=== PATIENT | male | born 1985 | race Caucasian/White ===

== ENCOUNTER 2016-11-04 17:30 | Emergency (ER) | payer MEDICAID ==
[~2016-11-04] VITALS: Ht 162.6 cm; Wt 77.3 kg
[2016-11-04 17:59] LABS: BASO % 0.3 % (0.0-2.0); EOS # 0.1 (0.0-0.7); EOS % 0.8 % (0-4.0); GRAN # 4.5 (1.4-6.5); HEMATOCRIT 43.2 % (42.0-52.0); HEMOGLOBIN 13.9 g/dl (13.5-18.0); LYMPH # 2.3 (1.2-3.4); LYMPH % 30.2 % (20.0-51.0); MEAN CELL VOLUME 81 fl (80.0-100.0); MEAN CORPUSCULAR HEMOGLOBIN 26 pg (27.0-31.0); MEAN CORPUSCULAR HGB CONC 32 g/dl (33.0-37.0); MEAN PLATELET VOLUME 12.3 fl (7.4-10.4); MONO # 0.6 (0.1-0.6); MONO % 8.4 % (1.7-9.3); PLATELET COUNT 122 K/mm3 (130-400); RED BLOOD COUNT 5.31 M/mm3 (4.20-5.60); REDCELL DISTRIBUTION WIDTH-CV 15.9 % (11.5-14.5); WHITE BLOOD COUNT 7.5 K/mm3 (4.8-10.8)
[2016-11-04 18:15] LABS: ADJUSTED CALCIUM 9.6 mg/dL (8.4-10.2); ALANINE AMINOTRANSFERASE 71 U/L (21-72); ALBUMIN 4.3 gm/dL (3.5-5.0); ALKALINE PHOSPHATASE 89 U/L (50-136); ANION GAP 13 mmol/L (7-16); BILIRUBIN,TOTAL 0.7 mg/dL (0.0-1.0); BLOOD UREA NITROGEN 18 mg/dL (9-20); CALCIUM 9.8 mg/dL (8.4-10.2); CARBON DIOXIDE 26 mmol/L (22-30); CHLORIDE 104 mmol/L (98-107); CREATININE, serum 1.42 mg/dL (0.66-1.25); GLUCOSE 78 mg/dL (74-106); SODIUM 143 mmol/L (137-145); TOTAL PROTEIN 7.7 gm/dL (6.4-8.2)
[2016-11-04 18:32] LABS: PROLACTIN 15.4 ng/mL (3.7-17.9)
[2016-11-04] MEDS ORDERED: LYRICA300 MG PO (19:29)
[2016-11-04] MEDS ORDERED: ATARAX50 MG PO (19:29)
[2016-11-04] MEDS ORDERED: TENORMIN 5050 MG/TAB PO (19:30)
[2016-11-04] MEDS ORDERED: ZOLOFT 100MG100 MG PO (19:31)
[2016-11-04] MEDS ORDERED: TENORMIN 2525 MG/TAB PO (19:31)
[2016-11-04] MEDS ORDERED: AMITRIPTYLINE H50 M1 PO (19:32)
[2016-11-04] MEDS ORDERED: XALATAN EYE DROPS OU (19:33)
[2016-11-04] MEDS ORDERED: VIMPAT100 MG PO (19:34)
[2016-11-04 19:35] VITALS: BP 92/72; PULSE 77; TEMP 97.8
[2016-11-04] MEDS ORDERED: VITAMIN D31000 IU PO (19:35)
[2016-11-04] MEDS ORDERED: TOPAMAX 100MG100 M1 PO (19:36)
[2016-11-04] MEDS ORDERED: PEPCID 20MG TAB20 MG PO (19:37)
[2016-11-04] MEDS ORDERED: FISH OIL 1000MG1 CAP PO (19:38)
[2016-11-04] MEDS ORDERED: ANTI-FUNGAL1% TOP (19:39)
[2016-11-04] MEDS ORDERED: IBU400 MG PO (19:40)
[2016-11-04] MEDS ORDERED: MAXALT10 MG PO (19:40)
[2016-11-04] MEDS ORDERED: FIORICET 325 MG1 TA1 PO (19:41)
== END 2016-11-04 19:50 | disposition home or self-care (01) ==
LOC: COL.ER 17:30
PROVIDERS: Physician Assistant
DX: S00.83XA Contusion of other part of head, initial encounter (principal); S10.83XA Contusion of other specified part of neck, initial encounter; S09.8XXA Other specified injuries of head, initial encounter; W18.39XA Other fall on same level, initial encounter
CPT/HCPCS: J3360; J7030

== ENCOUNTER 2016-11-24 10:56 | Emergency (ER) | payer MEDICAID ==
[~2016-11-24] VITALS: Ht 162.6 cm; Wt 80.0 kg
[~2016-11-24 10:56] MED LIST: AMITRIPTYLINE H50 M1 PO; ANTI-FUNGAL1% TOP; ATARAX50 MG PO; FIORICET 325 MG1 TA1 PO; FISH OIL 1000MG1 CAP PO; IBU400 MG PO; LYRICA300 MG PO; MAXALT10 MG PO; PEPCID 20MG TAB20 MG PO; TENORMIN 2525 MG/TAB PO; TENORMIN 5050 MG/TAB PO; TOPAMAX 100MG100 M1 PO; VIMPAT100 MG PO; VITAMIN D31000 IU PO; XALATAN EYE DROPS OU; ZOLOFT 100MG100 MG PO
[2016-11-24 11:24] LABS: BASO % 0.4 % (0.0-2.0); EOS # 0.1 (0.0-0.7); EOS % 0.7 % (0-4.0); GRAN # 4.7 (1.4-6.5); GRAN % 62.5 % (42.2-75.2); MEAN CELL VOLUME 81 fl (80.0-100.0); MEAN CORPUSCULAR HEMOGLOBIN 26 pg (27.0-31.0); MEAN CORPUSCULAR HGB CONC 32 g/dl (33.0-37.0); MEAN PLATELET VOLUME 12.7 fl (7.4-10.4); MONO # 0.7 (0.1-0.6); MONO % 9.1 % (1.7-9.3); PLATELET COUNT 137 K/mm3 (130-400); RED BLOOD COUNT 5.79 M/mm3 (4.20-5.60); REDCELL DISTRIBUTION WIDTH-CV 15.5 % (11.5-14.5); WHITE BLOOD COUNT 7.5 K/mm3 (4.8-10.8)
[2016-11-24 11:38] LABS: INFLUENZA B NEGATIVE
[2016-11-24 11:58] LABS: ADJUSTED CALCIUM 9.5 mg/dL (8.4-10.2); ALBUMIN 4.4 gm/dL (3.5-5.0); BILIRUBIN,TOTAL 0.7 mg/dL (0.0-1.0); C-REACTIVE PROTEIN 0.5 mg/dL (0.0-0.9); CALCIUM 9.8 mg/dL (8.4-10.2); CREATININE, serum 1.24 mg/dL (0.66-1.25); POTASSIUM 3.8 mmol/L (3.4-5.0); TOTAL PROTEIN 8.4 gm/dL (6.4-8.2)
[2016-11-24] MEDS ORDERED: PHENERGAN 25 TA25 MG PO (15:06)
[2016-11-24] MEDS ORDERED: ZOFRAN ODT4 MG PO (15:06)
[2016-11-24] MEDS ORDERED: NORCO 325 MG-51 TAB PO (15:07)
[2016-11-24 15:56] VITALS: BP 120/82; PULSE 74; TEMP 98.2
== END 2016-11-24 15:58 | disposition home or self-care (01) ==
LOC: COL.ER 10:56
PROVIDERS: Emergency Medicine
DX: R51 Headache (principal); R11.10 Vomiting, unspecified; Z98.2 Presence of cerebrospinal fluid drainage device; G80.9 Cerebral palsy, unspecified; G40.909 Epilepsy, unspecified, not intractable, without status epilepticus
CPT/HCPCS: J1885; J2270; J2405; J2550; J7030

== ENCOUNTER 2018-01-01 13:10 | Emergency (ER) | payer MEDICAID ==
[~2018-01-01] VITALS: Ht 162.6 cm; Wt 75.0 kg
[~2018-01-01 13:10] MED LIST changes: +NORCO 325 MG-51 TAB PO; +PHENERGAN 25 TA25 MG PO; +ZOFRAN ODT4 MG PO
[2018-01-01 13:15] VITALS: TEMP 97.8
[2018-01-01 16:02] LABS: BASO % 0.4 % (0.0-2.0); EOS # 0.1 (0.0-0.7); EOS % 1.5 % (0-4.0); GRAN # 3.9 (1.4-6.5); GRAN % 58.3 % (42.2-75.2); HEMATOCRIT 44.8 % (42.0-52.0); HEMOGLOBIN 14.3 g/dl (13.5-18.0); LYMPH % 29.6 % (20.0-51.0); MEAN CELL VOLUME 83 fl (80.0-100.0); MEAN CORPUSCULAR HEMOGLOBIN 27 pg (27.0-31.0); MEAN CORPUSCULAR HGB CONC 32 g/dl (33.0-37.0); MEAN PLATELET VOLUME 12.8 fl (7.4-10.4); MONO # 0.7 (0.1-0.6); MONO % 9.9 % (1.7-9.3); PLATELET COUNT 105 K/mm3 (130-400); RED BLOOD COUNT 5.38 M/mm3 (4.20-5.60); REDCELL DISTRIBUTION WIDTH-CV 16.6 % (11.5-14.5)
[2018-01-01 16:14] LABS: BILIRUBIN,TOTAL 0.2 mg/dL (0.0-1.0); CALCIUM 9.5 mg/dL (8.4-10.2); CREATININE, serum 1.12 mg/dL (0.66-1.25); TOTAL PROTEIN 7.6 gm/dL (6.4-8.2)
[2018-01-01] MEDS ORDERED: PRILOSEC 20MG20 MG PO (17:58)
[2018-01-01 19:17] VITALS: BP 106/64; PULSE 68
== END 2018-01-01 19:18 | disposition home or self-care (01) ==
LOC: COL.ER 13:10
PROVIDERS: Emergency Medicine
DX: R51 Headache (principal); R07.89 Other chest pain; G40.909 Epilepsy, unspecified, not intractable, without status epilepticus; Z98.2 Presence of cerebrospinal fluid drainage device
CPT/HCPCS: J1885; J2060; J2270; J2405; J7030

== ENCOUNTER 2018-02-11 15:39 | Emergency (ER) | payer MEDICAID ==
[~2018-02-11] VITALS: Ht 167.6 cm; Wt 76.4 kg
[~2018-02-11 15:39] MED LIST changes: +PRILOSEC 20MG20 MG PO
[2018-02-11 15:45] VITALS: TEMP 99
[2018-02-11 16:21] LABS: BASO % 0.5 % (0.0-2.0); EOS # 0.1 (0.0-0.7); EOS % 2.1 % (0-4.0); GRAN # 3.6 (1.4-6.5); GRAN % 58.4 % (42.2-75.2); HEMATOCRIT 43.7 % (42.0-52.0); LYMPH # 1.7 (1.2-3.4); LYMPH % 28.6 % (20.0-51.0); MEAN CELL VOLUME 83 fl (80.0-100.0); MEAN CORPUSCULAR HEMOGLOBIN 27 pg (27.0-31.0); MEAN CORPUSCULAR HGB CONC 32 g/dl (33.0-37.0); MEAN PLATELET VOLUME 12.2 fl (7.4-10.4); MONO # 0.6 (0.1-0.6); MONO % 9.9 % (1.7-9.3); PLATELET COUNT 137 K/mm3 (130-400); RED BLOOD COUNT 5.27 M/mm3 (4.20-5.60); REDCELL DISTRIBUTION WIDTH-CV 15.5 % (11.5-14.5)
[2018-02-11 16:29] LABS: ALBUMIN 4.1 gm/dL (3.5-5.0); BILIRUBIN,TOTAL 0.3 mg/dL (0.0-1.0); CALCIUM 9.5 mg/dL (8.4-10.2); CREATININE, serum 1.24 mg/dL (0.66-1.25); POTASSIUM 4.3 mmol/L (3.4-5.0); TOTAL PROTEIN 8.1 gm/dL (6.4-8.2)
[2018-02-11 17:55] VITALS: BP 119/71; PULSE 79
== END 2018-02-11 18:09 | disposition home or self-care (01) ==
LOC: COL.ER 15:39
PROVIDERS: Emergency Medicine
DX: S00.93XA Contusion of unspecified part of head, initial encounter (principal); S80.01XA Contusion of right knee, initial encounter; S60.211A Contusion of right wrist, initial encounter; W19.XXXA Unspecified fall, initial encounter

== ENCOUNTER 2018-09-21 09:45 | Outpatient (RCR) | payer MEDICAID | END 2018-10-23 | disposition home or self-care (01) | LOC: MKS.ESL.PT | DX: G80.8 Other cerebral palsy (principal); G40.909 Epilepsy, unspecified, not intractable, without status epilepticus; R26.81 Unsteadiness on feet; R29.6 Repeated falls ==

== ENCOUNTER → 2019-02-06 | Outpatient (CLI) | payer MEDICAID | LOC: COL.RAD 11:54 | DX: G80.1 Spastic diplegic cerebral palsy (principal) ==